=== PATIENT | male | born 1970 | race Caucasian/White ===

== ENCOUNTER 2021-10-29 18:41 | Emergency (ER) | payer OTHER ==
[~2021-10-29] VITALS: Ht 190.5 cm; Wt 117.9 kg
[2021-10-29] MEDS ORDERED: CRESTOR5 MG PO (18:55)
[2021-10-29] MEDS ORDERED: CELEXA 10 MG TA10 M1 PO (18:55)
[2021-10-29] MEDS ORDERED: LISINOPRIL10 MG PO (18:55)
[2021-10-29 19:44] LABS: HEMATOCRIT 43.1 % (42.0-52.0); HEMOGLOBIN 15.3 gm/dL (14.0-18.0); MCH 31.7 pg (26.0-34.0); MCHC 35.5 g/dL (28.0-37.0); MCV 89.3 fL (80.0-100.0); MPV 9.9 fl. (7.2-11.1); RBC 4.82 mil/uL (4.50-6.00); RDW-CV 13.1 % (10.5-14.5)
[2021-10-29 19:54] LABS: CALCIUM 8.8 mg/dL (8.5-10.1); CREATININE 1.1 mg/dL (0.6-1.3); POTASSIUM 3.6 mmol/L (3.5-5.1)
[2021-10-29 19:58] LABS: ALBUMIN 3.8 g/dL (3.4-5.0); TOTAL BILIRUBIN 0.3 mg/dL (<0.1-1.0); TOTAL PROTEIN 6.9 g/dL (6.4-8.2)
[2021-10-29 20:07] LABS: URINE BILIRUBIN NEGATIVE (Negative); URINE BLOOD TRACE (Negative); URINE CLARITY CLEAR; URINE COLOR YELLOW; URINE GLUCOSE-RANDOM NEGATIVE (Negative); URINE KETONES NEGATIVE (Negative); URINE LEUKOCYTES NEGATIVE (Negative); URINE NITRITE NEGATIVE (Negative); URINE PROTEIN NEGATIVE (Negative); URINE SPECIFIC GRAVITY <= 1.005 (1.005-1.030); URINE UROBILINOGEN 0.2 E.U./dl (0.2-1.0)
[2021-10-29] MEDS ORDERED: NORCO5 PO ×2 (20:26→20:35)
[2021-10-29 20:44] VITALS: BP 136/86
--- NOTE | 2021-10-30 11:10 | EKG ---
[place] [address] ELECTROCARDIOGRAM REPORT Name: EPI PLUMMER Room: [facility]#: [id number] Admission: 10/29/21 Attend Phys: Discharge: 10/29/21 Date of : 74 Date of Service: 10/29/211924 Report #: [id number] THIS REPORT FOR: //name// [facility] ED Test Date: 2021-10-29 Test Time: 19:25:56 Pat Name: EPI PLUMMER Department: Room: Gender: Software Client Architect: : [id number] Requested By: Pollo Marsh Order Number: [id number] MD: Paxton Jones Measurements Intervals Delta Rate: 85 P: 60 TX: 139 QRS: 58 QRSD: 102 T: 45 QT: 368 QTc: 438 Interpretive Statements Sinus rhythm Minimal ST depression, inferior leads Baseline wander in lead(s) V5 Compared to ECG 11/17/2007 11:08:56 no change Electronically Signed On 10-30-2021 11:10:12 [employer] by Paxton Jones [email or web address] <ELECTRONICALLY SIGNED> By: Paxton Jones MD, FACC 10/30/21 1110 24 24 Paxton Jones MD, FAC /EPI
== END 2021-10-29 20:46 | disposition home or self-care (01) ==
LOC: M.ERS 18:41
PROVIDERS: Physician Assistant
DX: R10.9 Unspecified abdominal pain (principal); I10 Essential (primary) hypertension; E78.00 Pure hypercholesterolemia, unspecified; F17.210 Nicotine dependence, cigarettes, uncomplicated; Z79.899 Other long term (current) drug therapy